=== PATIENT | female | born 1960 | race Caucasian/White ===

== ENCOUNTER 2021-10-26 13:07 | Outpatient (CLI) | payer MEDICAID, MEDICARE, OTHER | END 2021-10-26 13:08 | disposition home or self-care (01) | LOC: CSHULT 13:07 | PROVIDERS: ATTEND Otolaryngology Plastic Surgery within the Head & Neck | DX: R22.1 Localized swelling, mass and lump, neck (principal) | CPT/HCPCS: 76536 ==

== ENCOUNTER 2022-01-30 08:06 | Observation (INO) | payer MEDICARE, MEDICAID ==
[2022-01-30] MEDS ORDERED: diphenhydrAMINE 50 MG/ML VIAL ONE (08:55)
[2022-01-30] MEDS ORDERED: Dexamethasone 10 MG/ML VIAL ONE (08:55)
[2022-01-30 08:56] LABS: #Monocytes 0.4 10x3/uL (0.0-1.1); #Neutrophils 10.6 10x3/uL (1.5-8.4); %Basophils 0.2 % (0.0-2.0); %Monocytes 2.9 % (0.0-10.0); %Neutrophils 85.2 % (40.0-75.0); Hemoglobin 12.1 g/dL (12.0-15.5); Mean Corpuscular HGB CONC 33.1 g/dL (32.0-36.0); Mean Corpuscular Hemoglobin 29.5 pg (27.0-33.0); Mean Corpuscular Volume 89.3 fl (81.6-98.3); Mean Platelet Volume 11.6 fl (7.4-10.4); Platelet Count 225 10x3/uL (150-450); RBC Distribution Width 13.3 % (11.5-14.5); White Blood Cell (WBC) Count 12.5 10x3/uL (3.5-10.5)
[2022-01-30] MEDS ORDERED: Famotidine/PF 20 mg/2ml Vial ONE (08:56)
[2022-01-30 09:06] LABS: ALT (SGPT) 9 U/L (8-55); AST (SGOT) 11 U/L (5-34); Albumin 4.2 g/dL (3.5-5.0); Alkaline Phosphatase 101 U/L (40-110); Anion Gap 17 mmol/L (10-20); BUN (Urea Nitrogen) 51 mg/dL (9.8-20.1); Bilirubin, Total 0.5 mg/dL (0.2-1.2); Calc. Creatinine Clearance 0 mL/min (70-130); Calcium 8.9 mg/dL (7.8-10.44); Carbon Dioxide 18 mmol/L (22-29); Chloride 109 mmol/L (98-107); Estimated GFR 33; Globulin 3.7 g/dL (2.4-3.5); Glucose 197 mg/dL (70-105); Potassium 4.8 mmol/L (3.5-5.1); Protein, Total 7.9 g/dL (6.0-8.3); Sodium 139 mmol/L (136-145)
[2022-01-30] MEDS ORDERED: Ondansetron ODT 4 MG TAB PO PRN (10:44)
[2022-01-30] MEDS ORDERED: Acetaminophen 325 MG TAB PO PRN (10:44)
[2022-01-30] MEDS ORDERED: Ondansetron PF 4 MG/2 ML Vial IVP PRN (10:44)
[2022-01-30] MEDS ORDERED: Acetaminophen 650 MG Suppository PR PRN (10:44)
[2022-01-30] MEDS ORDERED: hydrALAZINE 20 MG/ML VIAL SLOW IVP PRN (11:20)
[2022-01-30] MEDS ORDERED: Dextrose 50% Abboject 50 ML SYRINGE SLOW IVP PRN (11:21)
[2022-01-30] MEDS ORDERED: Dextrose 5% in Water 1,000 ML IV PRN (11:21)
[2022-01-30] MEDS ORDERED: Insulin Regular 300 UNITS/3 ML VIAL SC PRN ×2 (11:21)
[2022-01-30] MEDS: Sodium Chloride 0.9% 1,000 ML IV SCH (14:03)
[2022-01-30 16:31] LABS: Hemoglobin A1c 6.9 % (4.0-6.0)
[2022-01-30 17:09] VITALS: BMI 49.9
[2022-01-30] MEDS: methylPREDNISolone Sod Succ 40 MG VIAL IVP SCH ×2 (19:29→23:44)
[2022-01-30] MEDS ORDERED: Famotidine 20 MG TAB PO SCH (21:00)
[2022-01-30] MEDS: Heparin 5,000 UNITS/ML VIAL SC SCH (23:03)
[2022-01-30] MEDS: Atorvastatin Calcium 40 MG TAB PO SCH (23:04)
[2022-01-30] MEDS: Carvedilol 12.5 MG TAB PO SCH (23:04)
[2022-01-31] MEDS: Sodium Chloride 0.9% 1,000 ML IV SCH ×2 (01:08→15:22)
[2022-01-31] MEDS ORDERED: Levothyroxine 150 MCG TAB PO SCH (06:00)
[2022-01-31] MEDS: Levothyroxine 150 MCG TAB PO SCH (06:40)
[2022-01-31] MEDS: methylPREDNISolone Sod Succ 40 MG VIAL IVP SCH ×2 (06:40→12:49)
[2022-01-31 06:50] LABS: #Monocytes 0.4 10x3/uL (0.0-1.1); #Neutrophils 12.7 10x3/uL (1.5-8.4); %Basophils 0.2 % (0.0-2.0); %Lymphocytes 7.1 % (18.0-47.0); %Neutrophils 88.2 % (40.0-75.0); Hemoglobin 11.2 g/dL (12.0-15.5); Mean Corpuscular HGB CONC 32.2 g/dL (32.0-36.0); Mean Corpuscular Hemoglobin 29.1 pg (27.0-33.0); Mean Corpuscular Volume 90.4 fl (81.6-98.3); Mean Platelet Volume 11.7 fl (7.4-10.4); Platelet Count 193 10x3/uL (150-450); RBC Distribution Width 13.5 % (11.5-14.5); Red Blood Cell (RBC) Count 3.85 10x6/uL (3.90-5.03); White Blood Cell (WBC) Count 14.4 10x3/uL (3.5-10.5)
[2022-01-31 06:54] LABS: Anion Gap 16 mmol/L (10-20); BUN (Urea Nitrogen) 51 mg/dL (9.8-20.1); Calc. Creatinine Clearance 81 mL/min (70-130); Calcium 8.9 mg/dL (7.8-10.44); Carbon Dioxide 19 mmol/L (22-29); Chloride 110 mmol/L (98-107); Estimated GFR 39; Glucose 351 mg/dL (70-105); Potassium 5.1 mmol/L (3.5-5.1); Sodium 140 mmol/L (136-145)
[2022-01-31] MEDS: Clopidogrel Bisulfate 75 MG TAB PO SCH (10:41)
[2022-01-31] MEDS: Amlodipine 10 MG TAB PO SCH (10:43)
[2022-01-31] MEDS: Aspirin 81 mg Enteric Coated Tablet PO SCH (10:43)
[2022-01-31] MEDS: Heparin 5,000 UNITS/ML VIAL SC SCH ×2 (10:44→20:47)
[2022-01-31] MEDS: Carvedilol 12.5 MG TAB PO SCH ×2 (10:44→20:48)
[2022-01-31] MEDS: Loratadine 10 MG TAB PO SCH (10:45)
[2022-01-31] MEDS ORDERED: methylPREDNISolone Sod Succ 40 MG VIAL IVP SCH (13:30)
[2022-01-31] MEDS: Atorvastatin Calcium 40 MG TAB PO SCH (20:49)
[2022-01-31] MEDS ORDERED: Famotidine 20 MG TAB PO SCH (21:00)
[2022-02-01] MEDS ORDERED: methylPREDNISolone Sod Succ 40 MG VIAL IVP SCH (01:00)
[2022-02-01] MEDS: Sodium Chloride 0.9% 1,000 ML IV SCH (03:53)
[2022-02-01 04:17] LABS: #Neutrophils 14.7 10x3/uL (1.5-8.4); %Basophils 0.1 % (0.0-2.0); %Lymphocytes 7.6 % (18.0-47.0); %Monocytes 5.8 % (0.0-10.0); %Neutrophils 85.3 % (40.0-75.0); Mean Corpuscular HGB CONC 32.8 g/dL (32.0-36.0); Mean Corpuscular Hemoglobin 29.2 pg (27.0-33.0); Mean Corpuscular Volume 88.9 fl (81.6-98.3); Mean Platelet Volume 11.9 fl (7.4-10.4); Platelet Count 206 10x3/uL (150-450); RBC Distribution Width 13.7 % (11.5-14.5); Red Blood Cell (RBC) Count 3.77 10x6/uL (3.90-5.03); White Blood Cell (WBC) Count 17.2 10x3/uL (3.5-10.5)
[2022-02-01 04:31] LABS: Anion Gap 14 mmol/L (10-20); BUN (Urea Nitrogen) 43 mg/dL (9.8-20.1); Calc. Creatinine Clearance 106 mL/min (70-130); Calcium 8.7 mg/dL (7.8-10.44); Carbon Dioxide 21 mmol/L (22-29); Chloride 109 mmol/L (98-107); Estimated GFR 53; Glucose 216 mg/dL (70-105); Potassium 4.8 mmol/L (3.5-5.1); Sodium 139 mmol/L (136-145)
[2022-02-01] MEDS: Levothyroxine 150 MCG TAB PO SCH (05:34)
[2022-02-01] MEDS ORDERED: Famotidine 20 MG TAB PO SCH (09:00)
[2022-02-01] MEDS: Amlodipine 10 MG TAB PO SCH (09:24)
[2022-02-01] MEDS: Aspirin 81 mg Enteric Coated Tablet PO SCH (09:25)
[2022-02-01] MEDS: Carvedilol 12.5 MG TAB PO SCH (09:25)
[2022-02-01] MEDS: Clopidogrel Bisulfate 75 MG TAB PO SCH (09:25)
[2022-02-01] MEDS: Heparin 5,000 UNITS/ML VIAL SC SCH (09:25)
[2022-02-01] MEDS: Loratadine 10 MG TAB PO SCH (09:25)
[2022-02-01 10:54] VITALS: BP 184/81; TEMP 97.6
== END 2022-02-01 11:00 | disposition home or self-care (01) ==
LOC: CSHERS 08:06 → CSHTELE 12:19
PROVIDERS: ADMIT Family Medicine; ATTEND Student in an Organized Health Care Education/Training Program
DX: T78.3XXA Angioneurotic edema, initial encounter (principal); K14.9 Disease of tongue, unspecified; I12.9 Hypertensive chronic kidney disease with stage 1 through stage 4 chronic kidney disease, or unspecified chronic kidney disease; E11.22 Type 2 diabetes mellitus with diabetic chronic kidney disease; N18.9 Chronic kidney disease, unspecified; N17.9 Acute kidney failure, unspecified; M10.9 Gout, unspecified; D72.829 Elevated white blood cell count, unspecified; J45.909 Unspecified asthma, uncomplicated; E04.2 Nontoxic multinodular goiter; I25.10 Atherosclerotic heart disease of native coronary artery without angina pectoris; G47.33 Obstructive sleep apnea (adult) (pediatric); Z79.82 Long term (current) use of aspirin; Z79.84 Long term (current) use of oral hypoglycemic drugs; Z79.899 Other long term (current) drug therapy; Z88.8 Allergy status to other drugs, medicaments and biological substances; Z85.850 Personal history of malignant neoplasm of thyroid; Z20.822 Contact with and (suspected) exposure to COVID-19
CPT/HCPCS: 70490; 80048 ×2; 80053; 82962 ×3; 83036; 85025 ×3; 85652; 86140; 86160; 94760 ×3; 96372 ×3; 96374; 96375 ×2; 96376 ×2; 99285; G0378 ×4; U0003; U0005; 36415; 36416; J1100; J1200; J1644; J1815; J2920; J7050; S0028

== ENCOUNTER 2023-06-05 12:57 | Emergency (ER) | payer MEDICARE, OTHER ==
[2023-06-05] MEDS ORDERED: Albuterol 2.5 MG (3 mL) NEB ONE (13:49)
[2023-06-05 14:34] LABS: SARS-CoV-2 NAA Rapid Test Not Detected (NotDetected)
== END 2023-06-05 15:50 | disposition home or self-care (01) ==
LOC: CSHERS 12:57
DX: J20.9 Acute bronchitis, unspecified (principal); I10 Essential (primary) hypertension; I25.10 Atherosclerotic heart disease of native coronary artery without angina pectoris; I25.2 Old myocardial infarction; Z86.73 Personal history of transient ischemic attack (TIA), and cerebral infarction without residual deficits; Z79.84 Long term (current) use of oral hypoglycemic drugs; Z79.82 Long term (current) use of aspirin; Z79.899 Other long term (current) drug therapy
CPT/HCPCS: 0240U; 71046; J7611

== ENCOUNTER 2023-09-25 13:25 | Emergency (ER) | payer MEDICARE ==
[2023-09-25] MEDS ORDERED: Ondansetron PF 4 MG/2 ML Vial ONE (14:38)
[2023-09-25] MEDS ORDERED: Acetaminophen 500 MG TAB ONE (14:38)
[2023-09-25 15:16] LABS: #Basophils 0.07 10x3/uL (0.0-0.2); #Monocytes 0.75 10x3/uL (0.0-1.1); #Neutrophils 5.57 10x3/uL (1.5-8.4); %Basophils 0.8 % (0.0-2.0); %Eosinophils 3.4 % (0.0-6.0); %Lymphocytes 24.5 % (18.0-47.0); %Monocytes 8.4 % (0.0-10.0); %Neutrophils 62.8 % (40.0-75.0); Hematocrit 34.5 % (34.9-44.5); Hemoglobin 11.1 g/dL (12.0-15.5); Mean Corpuscular HGB CONC 32.2 g/dL (32.0-36.0); Mean Corpuscular Hemoglobin 28.3 pg (27.0-33.0); Mean Platelet Volume 11.3 fL (7.4-10.4); Platelet Count 206 10x3/uL (150-450); RBC Distribution Width 15.8 % (11.5-14.5); Red Blood Cell (RBC) Count 3.92 10x6/uL (3.90-5.03); White Blood Cell (WBC) Count 8.9 10x3/uL (3.5-10.5)
[2023-09-25 15:29] LABS: ALT (SGPT) 11 U/L (8-55); AST (SGOT) 15 U/L (5-34); Alkaline Phosphatase 94 U/L (40-110); Anion Gap 15 mmol/L (10-20); BUN (Urea Nitrogen) 25 mg/dL (9.8-20.1); Bilirubin, Total 0.4 mg/dL (0.2-1.2); Calc. Creatinine Clearance 0 mL/min (70-130); Calcium 8.9 mg/dL (7.8-10.44); Carbon Dioxide 21 mmol/L (23-31); Chloride 112 mmol/L (98-107); Estimated GFR 40; Globulin 3.6 g/dL (2.4-3.5); Glucose 116 mg/dL (80-115); Potassium 4.8 mmol/L (3.5-5.1); Protein, Total 6.6 g/dL (5.8-8.1); Sodium 143 mmol/L (136-145)
[2023-09-25 15:34] LABS: Troponin I Less than 0.010 ng/mL (< 0.028)
== END 2023-09-25 16:30 | disposition home or self-care (01) ==
LOC: CSHERS 13:25
DX: S09.90XA Unspecified injury of head, initial encounter (principal); R55 Syncope and collapse; I12.9 Hypertensive chronic kidney disease with stage 1 through stage 4 chronic kidney disease, or unspecified chronic kidney disease; N18.9 Chronic kidney disease, unspecified; I25.10 Atherosclerotic heart disease of native coronary artery without angina pectoris; I25.2 Old myocardial infarction; Z86.73 Personal history of transient ischemic attack (TIA), and cerebral infarction without residual deficits; W18.09XA Striking against other object with subsequent fall, initial encounter; Y93.89 Activity, other specified; Y92.000 Kitchen of unspecified non-institutional (private) residence as the place of occurrence of the external cause
CPT/HCPCS: 70450; 71045; 72125; 80053; 83880; 84484; 85025; 93005; J2405; 36415; 96361; 96374

== ENCOUNTER 2023-12-07 09:47 | Observation (INO) | payer MEDICARE ==
[~2023-12-07 09:47] MED LIST: Iopamidol 370 76% 100 ML VIAL ONE
[2023-12-07] MEDS ORDERED: Acetaminophen 500 MG TAB ONE (10:40)
[2023-12-07] MEDS ORDERED: diphenhydrAMINE 50 MG/ML VIAL ONE (10:40)
[2023-12-07] MEDS ORDERED: Prochlorperazine 10 MG/2 ML VIAL ONE (10:40)
[2023-12-07 10:42] LABS: #Basophils 0.04 10x3/uL (0.0-0.2); #Eosinphils 0.36 10x3/uL (0.0-0.5); %Basophils 0.5 % (0.0-2.0); %Eosinophils 4.7 % (0.0-6.0); %Monocytes 7.8 % (0.0-10.0); %Neutrophils 58.7 % (40.0-75.0); Hematocrit 37.4 % (34.9-44.5); Hemoglobin 11.9 g/dL (12.0-15.5); Mean Corpuscular HGB CONC 31.8 g/dL (32.0-36.0); Mean Corpuscular Hemoglobin 28.3 pg (27.0-33.0); Mean Corpuscular Volume 88.8 fL (81.6-98.3); Mean Platelet Volume 11.7 fL (7.4-10.4); Platelet Count 225 10x3/uL (150-450); RBC Distribution Width 14.7 % (11.5-14.5); Red Blood Cell (RBC) Count 4.21 10x6/uL (3.90-5.03); White Blood Cell (WBC) Count 7.7 10x3/uL (3.5-10.5)
[2023-12-07 11:00] LABS: ALT (SGPT) 8 U/L (8-55); AST (SGOT) 13 U/L (5-34); Albumin 3.5 g/dL (3.4-4.8); Alkaline Phosphatase 108 U/L (40-110); Anion Gap 14 mmol/L (10-20); BUN (Urea Nitrogen) 29 mg/dL (9.8-20.1); Bilirubin, Total 0.5 mg/dL (0.2-1.2); Calc. Creatinine Clearance 0 mL/min (70-130); Calcium 9.5 mg/dL (7.8-10.44); Carbon Dioxide 25 mmol/L (23-31); Chloride 108 mmol/L (98-107); Estimated GFR 35; Globulin 3.3 g/dL (2.4-3.5); Glucose 128 mg/dL (80-115); Lipase 85 U/L (8-78); Magnesium 1.9 mg/dL (1.6-2.6); Potassium 4.2 mmol/L (3.5-5.1); Protein, Total 6.8 g/dL (5.8-8.1); Sodium 143 mmol/L (136-145); Troponin I Less than 0.010 ng/mL (< 0.028)
[2023-12-07] MEDS ORDERED: Ondansetron PF 4 MG/2 ML Vial IVP PRN (12:48)
[2023-12-07] MEDS ORDERED: Fioricet 325/50/40 mg Tablet PO PRN (12:50)
[2023-12-07 15:37] VITALS: BMI 45.2
[2023-12-07] MEDS: Acetaminophen 325 MG TAB PO SCH (17:42)
[2023-12-07] MEDS: Atorvastatin Calcium 40 MG TAB PO SCH (20:22)
[2023-12-07] MEDS: Aspirin 81 mg Enteric Coated Tablet PO SCH (20:22)
[2023-12-07] MEDS: Carvedilol 12.5 MG TAB PO SCH (20:22)
[2023-12-08 05:01] LABS: #Basophils 0.05 10x3/uL (0.0-0.2); #Eosinphils 0.34 10x3/uL (0.0-0.5); #Monocytes 0.73 10x3/uL (0.0-1.1); #Neutrophils 4.05 10x3/uL (1.5-8.4); %Basophils 0.7 % (0.0-2.0); %Eosinophils 4.5 % (0.0-6.0); %Lymphocytes 32.1 % (18.0-47.0); %Monocytes 9.6 % (0.0-10.0); %Neutrophils 52.8 % (40.0-75.0); Hematocrit 34.3 % (34.9-44.5); Hemoglobin 10.8 g/dL (12.0-15.5); Mean Corpuscular HGB CONC 31.5 g/dL (32.0-36.0); Mean Corpuscular Hemoglobin 28.2 pg (27.0-33.0); Mean Corpuscular Volume 89.6 fL (81.6-98.3); Mean Platelet Volume 11.7 fL (7.4-10.4); Platelet Count 197 10x3/uL (150-450); RBC Distribution Width 14.6 % (11.5-14.5); Red Blood Cell (RBC) Count 3.83 10x6/uL (3.90-5.03); White Blood Cell (WBC) Count 7.6 10x3/uL (3.5-10.5)
[2023-12-08 05:14] LABS: Anion Gap 13 mmol/L (10-20); BUN (Urea Nitrogen) 29 mg/dL (9.8-20.1); Calc. Creatinine Clearance 71 mL/min (70-130); Calcium 9.4 mg/dL (7.8-10.44); Carbon Dioxide 23 mmol/L (23-31); Chloride 109 mmol/L (98-107); Estimated GFR 38; Glucose 126 mg/dL (80-115); Potassium 4.2 mmol/L (3.5-5.1); Sodium 141 mmol/L (136-145)
[2023-12-08] MEDS: Levothyroxine 150 MCG TAB PO SCH (05:55)
[2023-12-08] MEDS: Enoxaparin 30 MG (0.3 mL) SYRINGE SC SCH (08:46)
[2023-12-08] MEDS: Allopurinol 100 MG TAB PO SCH (08:46)
[2023-12-08] MEDS: Pantoprazole DR 40 MG TAB PO SCH (08:46)
[2023-12-08] MEDS: Folic Acid 1 MG TAB PO SCH (08:46)
[2023-12-08] MEDS: metFORMIN 500 MG TAB PO SCH (08:46)
[2023-12-08] MEDS: Hydrochlorothiazide 25 MG TAB PO SCH (08:46)
[2023-12-08] MEDS: Amlodipine 10 MG TAB PO SCH (08:46)
[2023-12-08 13:20] VITALS: TEMP 98.2
[2023-12-08 13:40] VITALS: BP 175/86
[2023-12-09] MEDS ORDERED: Enoxaparin 40 MG (0.4 mL) SYRINGE SC SCH (09:00)
== END 2023-12-08 12:35 | disposition home or self-care (01) ==
LOC: CSHERS 09:47 → CSHTELE 13:26
PROVIDERS: ADMIT Internal Medicine; ATTEND Internal Medicine
DX: I65.21 Occlusion and stenosis of right carotid artery (principal); E11.9 Type 2 diabetes mellitus without complications; I10 Essential (primary) hypertension; I25.10 Atherosclerotic heart disease of native coronary artery without angina pectoris; J45.909 Unspecified asthma, uncomplicated; E03.9 Hypothyroidism, unspecified; M10.9 Gout, unspecified; Z79.890 Hormone replacement therapy; Z79.84 Long term (current) use of oral hypoglycemic drugs; Z79.82 Long term (current) use of aspirin; Z79.899 Other long term (current) drug therapy
CPT/HCPCS: 70496; 70498; 70551; 71045; 80048; 80053; 83690; 83735; 83880; 84484; 85025 ×2; 93005; 96374; 96375; 99285; J0780; J1200; J1650; Q9967; 36415; G0378

== ENCOUNTER 2024-01-18 09:32 | Outpatient (CLI) | payer MEDICARE | END 2024-01-18 09:33 | disposition home or self-care (01) | LOC: CSHULT 09:32 | PROVIDERS: ATTEND Otolaryngology Otolaryngic Allergy | DX: R22.1 Localized swelling, mass and lump, neck (principal); Z85.850 Personal history of malignant neoplasm of thyroid; Z90.89 Acquired absence of other organs | CPT/HCPCS: 76536 ==

== ENCOUNTER 2024-03-21 07:46 | Outpatient (CLI) | payer MEDICARE | END 2024-03-21 07:47 | disposition home or self-care (01) | LOC: CSHULT 07:46 | PROVIDERS: ATTEND Student in an Organized Health Care Education/Training Program | DX: N18.32 Chronic kidney disease, stage 3b (principal); N28.1 Cyst of kidney, acquired | CPT/HCPCS: 76770 ==

== ENCOUNTER 2024-12-24 06:19 | Emergency (ER) | payer OTHER ==
[2024-12-24 07:03] LABS: #Basophils 0.06 10x3/uL (0.0-0.2); #Eosinophils 0.43 10x3/uL (0.0-0.5); #Monocytes 0.84 10x3/uL (0.0-1.1); #Neutrophils 6.55 10x3/uL (1.5-8.4); %Basophils 0.6 % (0.0-2.0); %Eosinophils 4.0 % (0.0-6.0); %Lymphocytes 27.1 % (18.0-47.0); %Monocytes 7.7 % (0.0-10.0); %Neutrophils 60.2 % (40.0-75.0); Hematocrit 36.8 % (34.9-44.5); Hemoglobin 12.1 g/dL (12.0-15.5); Mean Corpuscular Hemoglobin 29.9 pg (27.0-33.0); Mean Corpuscular Volume 90.9 fL (81.6-98.3); Platelet Count 217 10x3/uL (150-450); Red Blood Cell (RBC) Count 4.05 10x6/uL (3.90-5.03); White Blood Cell (WBC) Count 10.87 10x3/uL (3.5-10.5)
[2024-12-24 07:14] LABS: ALT (SGPT) 7 U/L (Less than 34); AST (SGOT) 15 U/L (11-34); Albumin 3.7 g/dL (3.1-4.5); Alkaline Phosphatase 105 U/L (40-110); Anion Gap 18 mmol/L (10-20); BUN (Urea Nitrogen) 32 mg/dL (9.8-20.1); Bilirubin, Total 0.4 mg/dL (0.3-1.2); Calc. Creatinine Clearance 0 mL/min (70-130); Calcium 9.5 mg/dL (7.8-10.44); Carbon Dioxide 17 mmol/L (23-31); Chloride 113 mmol/L (98-107); Globulin 3.5 g/dL (2.4-3.5); Glucose 118 mg/dL (80-115); Potassium 5.0 mmol/L (3.5-5.1); Sodium 143 mmol/L (136-145)
[2024-12-24 07:20] LABS: Troponin I Less than 0.010 ng/mL (< 0.028)
[2024-12-24] MEDS ORDERED: Dexamethasone 10 MG/ML VIAL ONE (07:34)
== END 2024-12-24 07:37 | disposition home or self-care (01) ==
LOC: CSHERS 06:19
DX: R07.9 Chest pain, unspecified (principal); M54.6 Pain in thoracic spine; E11.9 Type 2 diabetes mellitus without complications; I10 Essential (primary) hypertension; I25.10 Atherosclerotic heart disease of native coronary artery without angina pectoris; I25.2 Old myocardial infarction; Z86.73 Personal history of transient ischemic attack (TIA), and cerebral infarction without residual deficits; Z95.5 Presence of coronary angioplasty implant and graft; Z79.84 Long term (current) use of oral hypoglycemic drugs; Z79.82 Long term (current) use of aspirin; Z79.899 Other long term (current) drug therapy
CPT/HCPCS: 71045; 80053; 83880; 84484; 85025; 93005; 94760; J1100; 96374